=== PATIENT | female | born 1935 | race Caucasian/White ===

== ENCOUNTER 2017-02-24 22:33 | Emergency (ER) | payer MEDICARE, MEDICAID ==
[~2017-02-24] VITALS: Ht 144.8 cm; Wt 60.0 kg
[2017-02-25] MEDS ORDERED: KETOROLAC 30MG/ML VIAL IM ONE (01:00)
[2017-02-25] MEDS ORDERED: ONDANSETRON 4MG ODT PO ONE (02:00)
[2017-02-25 03:21] VITALS: BP 125/80
== END 2017-02-25 03:39 | disposition home or self-care (01) ==
LOC: ER 22:34
DX: M54.32 Sciatica, left side (principal); M54.31 Sciatica, right side; R20.8 Other disturbances of skin sensation; I11.9 Hypertensive heart disease without heart failure; Z87.440 Personal history of urinary (tract) infections; Z90.49 Acquired absence of other specified parts of digestive tract
CPT/HCPCS: 72192; 96372; 99284; J1885; Q0162